=== PATIENT | male | born 1960 | race Caucasian/White ===

== ENCOUNTER 2016-09-12 11:31 | Observation (INO) ==
--- NOTE | 2016-09-12 11:41 | Emergency Department Note ---
Disposition Clinical Impression: Tachycardia, Cough, Fever, Renal insufficiency, Pulmonary nodules, Influenza A Disposition: Admitted As Inpatient Referrals: Jenna Daugherty CNP [Primary Care Provider] - Forms: ED Satisfaction Letter General Adult HPI - General Chief complaint: ED Shortness of Breath/Dyspnea Stated complaint: [facility] from [facility] Time Seen by Provider: 09/12/16 11:41 Source: patient Limitations: no limitations - History of Present Illness HPI Narrative: 56-year-old male reports emergency department from the urgent care center. The patient complained of cough runny nose nasal congestion and sore throat, they noticed his heart rate was rapid so they did an EKG which showed a sinus tachycardia with a heart rate of 132. The patient reports he has been ill for a couple of weeks. He was exposed to grandchild who had a similar illness. There is no history of choking and gasping wheezing stridor difficulty breathing or chest pain apart from when the patient coughs and the pain is on the right side only. There is no history of vomiting diarrhea or abdominal pain. No acute back pain. There is no history of confusion or convulsion. No trouble walking talking hearing seeing or speaking. No coughing up blood or leg swelling or pain. The patient denies anticoagulant therapy or previous cardiac disease including CAD or arrhythmia. There is no personal history of malignancy he has no history of DVT or PE. The patient has had no trouble moving the arms or legs independently. No dysarthria. No urinary symptoms. Onset (ago): day(s) Pain Scale: 10 - Related Data Home Medications Medication Instructions Recorded Confirmed Lisinopril/Hydrochlorothiazide 1 tab PO DAILY 12/07/15 02/20/16 [Zestoretic 20-25 mg Tablet] Atorvastatin Calcium [Lipitor] 20 mg PO DAILY 02/20/16 02/20/16 Esomeprazole Magnesium [Nexium] 40 mg PO DAILY 02/20/16 02/20/16 Ferrous Sulfate 325 mg PO DAILY 02/20/16 02/20/16 Ranitidine HCl [Zantac] 150 mg PO BID 02/20/16 02/20/16 Triamterene/HCTZ 37.5/25mg 1 tab PO DAILY 02/20/16 02/20/16 [Dyazide] Previous Rx's Medication Instructions Recorded Fluconazole [Diflucan] 150 mg PO Q3D #7 tab 03/04/16 Ketorolac [Toradol] 10 mg PO Q6HR 5 Days 05/02/16 Hydrocodone/Acetaminophen [Pontiac 1 tab PO Q6H PRN #10 tab 08/06/16 5-325 Tablet] Allergies Allergy/AdvReac Type Severity Reaction Status Date / Time No Known Allergies Allergy Verified 05/02/16 05:55 All systems ED: reviewed and negative except as stated. Past Medical History - Past Medical History Medical history: Reports: diabetes, GERD, hyperlipidemia, hypertension Surgical history: Reports: no surgical history Psychiatric history: Reports: no psych history - Social History Smoking Status: Never smoker Smokeless Tobacco Status: No Alcohol use: Reports: none Drug use: Reports: none Physical Exam - General Limitations: no limitations General appearance: alert, in no apparent distress - Head Head exam: atraumatic, normocephalic, normal inspection - Eye Eye exam: Present: normal appearance, PERRL, EOMI - ENT ENT exam: normal exam, normal oropharynx, mucous membranes moist, TM's normal bilaterally, normal external ear exam, other (Nasal congestion and discharge noted, the patient sounds congested.) - Neck Neck exam: Present: normal inspection, full ROM, trachea midline. Absent: meningismus - Chest Chest inspection: Present: symmetric chest wall rise. Absent: tenderness - Respiratory Respiratory exam: Present: normal lung sounds bilaterally. Absent: respiratory distress - Cardiovascular Cardiovascular exam: Present: regular rate, normal rhythm, normal heart sounds - Abdominal Exam Abdominal exam: Present: soft, Non-Tender, normal bowel sounds. Absent: tenderness, distention, guarding, rebound, rigidity, pulsatile mass - Extremities Exam Extremities exam: Present: normal inspection, full ROM, normal capillary refill. Absent: tenderness, pedal edema, joint swelling, calf tenderness - Expanded Lower Extremity Exam Neurovascular/Tendon exam: Present: normal capillary refill. Absent: pulse deficit, motor deficit, sensory deficit, tendon deficit, extremity cold to touch - Back Exam Back exam: Present: normal inspection, full ROM. Absent: tenderness, CVA tenderness (R), CVA tenderness (L), vertebral tenderness - Neurological Exam Neurological exam: Present: alert, oriented X3, CN II-XII intact. Absent: motor sensory deficit - Psychiatric Psychiatric exam: Present: normal affect, normal mood - Skin Skin exam: Present: warm, dry, intact, normal color. Absent: rash, cyanosis, diaphoresis, erythema, pallor, mottled Course Course Narrative: Patient reports he is developing a headache and complains of sinus pressure and congestion and pain in that area. He has had a persistent cough status post venting with codeine. He remains tachycardic. Percocet was given. - Reevaluation(s) Reevaluation #1: The patient stated he developed a fever of 102.7. Additional fluids were ordered. Lactate notably negative. The patient meet surge criteria this point , CTA chest pending. The patient is developed a headache but reports is from his sinuses. He is neurologically intact and he displays no nuchal rigidity but does have pain to percussion over the sinuses. There is no history of trauma. Initial Levaquin was ordered. Vital Signs Temperature 97.9 F 09/12/16 11:33 Pulse Rate 141 09/12/16 11:33 Respiratory Rate 18 09/12/16 11:33 Blood Pressure 166/94 09/12/16 11:33 O2 Sat by Pulse Oximetry 95 09/12/16 11:33 Temperature 102.7 F H 09/12/16 14:35 Pulse Rate 141 09/12/16 14:35 Respiratory Rate 24 09/12/16 14:35 Blood Pressure 176/110 09/12/16 14:35 O2 Sat by Pulse Oximetry 97 09/12/16 14:35 Oxygen Delivery Oxygen Delivery Room Air Medical Decision Making - MDM Narrative Medical decision making narrative: The patient has remained persistently tachycardic even after fluids and beta blockers. The patient developed a fever in the emergency department. CTA chest was obtained and showed no PE, pulmonary nodules noted. Flu testing was ordered and came back positive. Dr. Rose Mary navarrete came by the emergency department and evaluated the patient directly and feels the patient's recalcitrant tachycardia is significant, the patient will be admitted for observation. Tamiflu and Solu-Medrol were ordered. - Lab Data Lab results reviewed: Yes I reviewed the patient's lab results. Result diagrams: 09/12/16 11:56 09/12/16 11:56 Lab Results 09/12/16 09/12/16 09/12/16 Range/Units 11:56 11:56 11:56 WBC 7.6 (4.3-11.1) K/mcL RBC 5.37 (4.19-5.50) M/mcL Hgb 14.3 (12.9-16.9) g/dL Hct 42.5 (37.5-50.1) % MCV 79.1 L (83.0-100.0) fL MCH 26.6 L (28.0-33.3) pg MCHC 33.6 (31.6-35.5) g/dL RDW 14.6 H (11.5-14.5) % Plt Count 204 (140-400) K/mcL MPV 9.7 (9.4-12.4) fL Immature Gran % 1.3 (0-4) % Seg Neutrophils % 83.1 % Lymphocytes % 5.4 % Monocytes % 9.4 % Eosinophils % 0.5 % Basophils % 0.3 % Neutrophils # 6.3 (1.6-8.9) K/mcL Lymphocytes # 0.4 L (0.6-4.6) K/mcL Monocytes # 0.7 (0.0-1.3) K/mcL Eosinophils # 0.0 (0.0-0.6) K/mcL Basophils # 0.0 (0.0-0.2) K/mcL PT 11.9 (9.4-12.1) Seconds INR 1.1 APTT 30.9 (26.0-36.0) Seconds D-Dimer 781 H (0-500) ng/mLFEU Sodium 135 L (136-145) mEq/L Potassium 4.0 (3.5-4.5) mEq/L Chloride 94 L (98-109) mEq/L Carbon Dioxide 27 (19-29) mEq/L BUN 21 (8-26) mg/dL Creatinine 1.27 H (0.72-1.25) mg/dL Est GFR ( Amer) > 60 (> 60) Est GFR (Non-Af Amer) 58 L (> 60) BUN/Creatinine Ratio 17 (6-26) Glucose 107 H (70-99) mg/dL Calculated Osmolality 283 (280-300) Lactic Acid (0.5-2.2) mmol/L Calcium 9.5 (8.6-10.8) mg/dL Total Bilirubin 0.4 (0.2-1.2) mg/dL Direct Bilirubin 0.2 (0.0-0.5) mg/dL Indirect Bilirubin 0.2 (0.0-1.2) mg/dL AST 28 (5-34) Units/L ALT 47 (0-55) Units/L Alkaline Phosphatase 62 (38-126) Units/L Creatine Kinase 147 (30-200) Units/L Troponin I (0-0.03) ng/mL C-Reactive Protein 42 H (Less than 5) mg/L B-Natriuretic Peptide (0-100) pg/mL Serum Total Protein 7.5 (6.0-8.3) g/dL Albumin 3.5 (3.5-5.0) g/dL Globulin 4.0 H (2.4-3.5) g/dL Albumin/Globulin Ratio 0.9 L (1.1-2.2) TSH 0.525 (0.350-4.840) mcIU/mL 09/12/16 09/12/16 09/12/16 Range/Units 11:56 11:56 11:56 WBC (4.3-11.1) K/mcL RBC (4.19-5.50) M/mcL Hgb (12.9-16.9) g/dL Hct (37.5-50.1) % MCV (83.0-100.0) fL MCH (28.0-33.3) pg MCHC (31.6-35.5) g/dL RDW (11.5-14.5) % Plt Count (140-400) K/mcL MPV (9.4-12.4) fL Immature Gran % (0-4) % Seg Neutrophils % % Lymphocytes % % Monocytes % % Eosinophils % % Basophils % % Neutrophils # (1.6-8.9) K/mcL Lymphocytes # (0.6-4.6) K/mcL Monocytes # (0.0-1.3) K/mcL Eosinophils # (0.0-0.6) K/mcL Basophils # (0.0-0.2) K/mcL PT (9.4-12.1) Seconds INR APTT (26.0-36.0) Seconds D-Dimer (0-500) ng/mLFEU Sodium (136-145) mEq/L Potassium (3.5-4.5) mEq/L Chloride (98-109) mEq/L Carbon Dioxide (19-29) mEq/L BUN (8-26) mg/dL Creatinine (0.72-1.25) mg/dL Est GFR ( Amer) (> 60) Est GFR (Non-Af Amer) (> 60) BUN/Creatinine Ratio (6-26) Glucose (70-99) mg/dL Calculated Osmolality (280-300) Lactic Acid 1.3 (0.5-2.2) mmol/L Calcium (8.6-10.8) mg/dL Total Bilirubin (0.2-1.2) mg/dL Direct Bilirubin (0.0-0.5) mg/dL Indirect Bilirubin (0.0-1.2) mg/dL AST (5-34) Units/L ALT (0-55) Units/L Alkaline Phosphatase (38-126) Units/L Creatine Kinase (30-200) Units/L Troponin I 0.01 (0-0.03) ng/mL C-Reactive Protein (Less than 5) mg/L B-Natriuretic Peptide 63 (0-100) pg/mL Serum Total Protein (6.0-8.3) g/dL Albumin (3.5-5.0) g/dL Globulin (2.4-3.5) g/dL Albumin/Globulin Ratio (1.1-2.2) TSH (0.350-4.840) mcIU/mL - Radiology Data Radiology results reviewed: Yes I reviewed the patient's radiology results.
[2016-09-12 12:10] LABS: Basophils % 0.3 %; Eosinophils % 0.5 %; Hematocrit 42.5 % (37.5-50.1); Hemoglobin 14.3 g/dL (12.9-16.9); Immature Granulocytes % 1.3 % (0-4); Lymphocytes # 0.4 K/mcL (0.6-4.6); Lymphocytes % 5.4 %; Mean Corpuscular HGB Conc 33.6 g/dL (31.6-35.5); Mean Corpuscular Hemoglobin 26.6 pg (28.0-33.3); Mean Corpuscular Volume 79.1 fL (83.0-100.0); Mean Platelet Volume 9.7 fL (9.4-12.4); Monocytes # 0.7 K/mcL (0.0-1.3); Monocytes % 9.4 %; Neutrophils # 6.3 K/mcL (1.6-8.9); Platelet Count 204 K/mcL (140-400); Red Blood Count 5.37 M/mcL (4.19-5.50); Red Cell Distribution Width 14.6 % (11.5-14.5); Segmented Neutrophils % 83.1 %
[2016-09-12] MEDS: 0.9 % Sodium Chloride 1,000 ML IVC ONE ×2 (12:12→15:06)
[2016-09-12 12:18] LABS: INR 1.1; Prothrombin Time 11.9 Seconds (9.4-12.1)
[2016-09-12 12:20] LABS: Activated Partial Thrombo Time 30.9 Seconds (26.0-36.0)
[2016-09-12] MEDS ORDERED: Promethazine/Codeine Oral Sryup 5 ML UDC PO ONE (12:25)
[2016-09-12 12:27] LABS: Alanine Aminotransferase 47 Units/L (0-55); Albumin 3.5 g/dL (3.5-5.0); Albumin/Globulin Ratio 0.9 (1.1-2.2); Alkaline Phosphatase 62 Units/L (38-126); Aspartate Amino Transferase 28 Units/L (5-34); BUN/Creatinine Ratio 17 (6-26); Bilirubin,Direct 0.2 mg/dL (0.0-0.5); Bilirubin,Indirect 0.2 mg/dL (0.0-1.2); Bilirubin,Total 0.4 mg/dL (0.2-1.2); Blood Urea Nitrogen 21 mg/dL (8-26); Calcium 9.5 mg/dL (8.6-10.8); Carbon Dioxide 27 mEq/L (19-29); Chloride 94 mEq/L (98-109); Creatine Kinase 147 Units/L (30-200); Glucose 107 mg/dL (70-99); Osmolality,Calculated 283 (280-300); Sodium 135 mEq/L (136-145); Total Protein 7.5 g/dL (6.0-8.3); eGFR For African Americans > 60 (> 60); eGFR For Non-African Americans 58 (> 60)
[2016-09-12 12:48] LABS: Thyroid Stimulating Hormone 0.525 mcIU/mL (0.350-4.840)
[2016-09-12 13:23] LABS: C-Reactive Protein 42 mg/L (Less than 5)
[2016-09-12] MEDS ORDERED: *HR* OxyCODONE/APAP 5/325 TABLET PO ONE (14:18)
[2016-09-12] MEDS ORDERED: *HR* Metoprolol 5 MG/5 ML VIAL IVP ONE (14:20)
[2016-09-12] MEDS ORDERED: Levofloxacin 750 MG/150 ML 750 MG/150 ML BAG IVPB ONE (14:35)
[2016-09-12] MEDS ORDERED: 0.9 % Sodium Chloride 1,000 ML ONE (14:57)
[2016-09-12] MEDS ORDERED: Naloxone 0.4 MG/ML INJ IVP PRN (15:30)
[2016-09-12] MEDS ORDERED: *HR* Morphine 2 MG/ML SYRINGE IVP PRN (15:35)
[2016-09-12] MEDS ORDERED: NON-FORMULARY MEDICATION 1 EACH EACH (Fluconazole [Diflucan] 150 MG) PO SCH (15:45)
[2016-09-12] MEDS ORDERED: methylPREDNISolone 125 MG/2 ML VIAL IVP ONE (15:47)
[2016-09-12] MEDS ORDERED: MethylPREDNISolone 40 MG/ML VIAL IVP ONE (16:00)
--- NOTE | 2016-09-12 16:13 | Internal Med History&Physical ---
Date of Encounter: 09/12/16 Time of Encounter: 16:06 Assessment and Plan (1) COPD exacerbation Current visit: Yes Status: Acute COPD Exacerbation: likely COPD exacerbation. will start abx, sterriods and BDAs Noted patient ad spike of temp: 102. If persistent spoke then add vanco and Zosyn. At present only Levaquin to cover atypical/Superadded infection. In ER when I examined patient around 3 pm his HR was 11o/m (2) Influenza A Current visit: Yes Status: Acute respiratory precautions and Tamiflu close observation (3) Renal insufficiency Current visit: Yes Status: Acute NOREEN secndary to dehydration will get labs tomorrow. Internal Medicine - H&P: HPI Chief complaint: Shortness of breath Admitted From: Emergency Dept Plans for Post Hospital Care: Home History of present illness: 56/M PCP: none, usually ge evaluated bby urgent care. PMH : DM, HN, Dyslipidemia, HTN, GERD. HPI : The patient was complaining of cough with shortness of breath for last 4 weeks. In last week his symptoms got worse. Patient tried [id number] medication which did not help him. Patient started complaining of runny nose, chest tightness, cough, occasional shortness of breath and sinus pressure. Patient was evaluated by urgent care in [place]. At urgent care they found that patient was tachycardic to 130/m. This was the reason he was sent to ER for further evaluation. Patient denies nausea, vomiting, diarrhea, dizziness and abdominal pain. Workup in the ER: Patient was given IV fluids, blood was sent for appropriate testing, CT chest was negative for PE, chest x-ray did not reveal any major abnormality. Reason for hospitalization: Likely exacerbation of underlying chronic lung condition secondary to acute infection. Will start patient on Tamiflu as his serologies positive for influenza A. Patient needed intravenous antibiotics and intravenous steroids and that is the reason he is admitted as inpatient. Family history: Noncontributory Past Med Surg Social Fam HX - Past Medical History Medical history: diabetes, GERD, hyperlipidemia, hypertension Psychiatric history: no psych history - Past Surgical History Surgical History: no surgical history - Social History Smoking Status: Never smoker Smokeless Tobacco Status: No Alcohol use: none Drug use: none Internal Medicine - H&P: Meds Lisinopril/Hydrochlorothiazide [Zestoretic 20-25 mg Tablet] 1 tab PO DAILY 12/06 [History] Atorvastatin Calcium [Lipitor] 20 mg PO DAILY 02/20/16 [History] Esomeprazole Magnesium [Nexium] 40 mg PO DAILY 02/20/16 [History] Ferrous Sulfate 325 mg PO DAILY 02/20/16 [History] Ranitidine HCl [Zantac] 150 mg PO BID 02/20/16 [History] Triamterene/HCTZ 37.5/25mg [Dyazide] 1 tab PO DAILY 02/20/16 [History] Gabapentin [Neurontin] 300 mg PO TID 09/12/16 [History] Loratadine [Claritin] 10 mg PO DAILY 09/12/16 [History] Metformin [Glucophage] 500 mg PO BID 09/12/16 [History] Allergies No Known Allergies Allergy (Verified 05/02/16 05:55) All Systems PM: A 10-system review of systems was performed and is negative for pertinent findings except as documented above in the HPI. - Constitutional Constitutional: no chills, no fever(s), no night sweats - EENT Eyes: no change in vision, no discharge, no pain, no photophobia Ears: no ear discharge, no ear pain, no tinnitus Nose, mouth and throat: no dysphagia, no nasal discharge, no neck pain, no sore throat - Cardiovascular Cardiovascular ROS IM: no chest pain, no diaphoresis, no dyspnea, no lightheadedness, no palpitations, no syncope - Respiratory Respiratory: no cough, no dyspnea, no wheezing, no excessive phlegm production - Gastrointestinal Gastrointestinal: no abdominal pain, no diarrhea, no hematemesis, no hematochezia, no melena, no nausea, no vomiting - Musculoskeletal Musculoskeletal ROS IM: no numbness, no tingling - Integumentary Integumentary IM: no rash, no unusual bruising - Neurological Neurological ROS: no confusion, no convulsions, no focal weakness, no numbness, no tingling, no tremor(s) - Hematologic/Lymphatic Hematologic/Lymphatic: no easy bruising - Constitutional Vitals: Temp Pulse Resp BP Pulse Ox 102.7 F H 141 24 176/110 97 09/12/16 14:35 09/12/16 14:35 09/12/16 14:35 09/12/16 14:35 09/12/16 14:35 General appearance: Present: A&O X 3 - Head Head exam: Present: atraumatic, normocephalic - Eye Eye exam: Present: PERRL, conjuntiva pink, sclera anicteric Pupils: Present: PERRL - Neck Neck exam general surgery: Present: supple, trachea midline. Absent: lymphadenopathy - Respiratory Respiratory exam: Present: CTAB. Absent: accessory muscle use, rales, rhonchi, wheezes - Cardiovascular Cardiovascular exam: Present: RRR, +S1, +S2. Absent: diastolic murmur, gallop, rubs, systolic murmur - GI/Abdominal GI/Abdominal exam: Present: normal bowel sounds, soft, no peritoneal signs. Absent: distended, tenderness - Extremities Exam Extremities exam: Present: warm, radial pulses palpable and symetrical. Absent : calf tenderness, cyanotic, pedal edema - Neurological Exam Neurological exam: Present: CN II-XII intact, oriented X3, no focal deficits. Absent: pronater drift, facial droop, speech deficit - Skin Skin exam: Present: dry, intact Internal Med - H&P Results - Labs CBC & Chem 7: 09/12/16 11:56 09/12/16 11:56 Labs: Short CBC 09/12/16 Range/Units 11:56 WBC 7.6 (4.3-11.1) K/mcL Hgb 14.3 (12.9-16.9) g/dL Hct 42.5 (37.5-50.1) % Plt Count 204 (140-400) K/mcL Neutrophils # 6.3 (1.6-8.9) K/mcL BMP 09/12/16 11:56 Sodium 135 L Potassium 4.0 Chloride 94 L Carbon Dioxide 27 BUN 21 Creatinine 1.27 H Glucose 107 H Calcium 9.5 Cardiac Enzymes 09/12/16 Range/Units 11:56 Troponin I 0.01 (0-0.03) ng/mL Liver Function 09/12/16 Range/Units 11:56 Total Bilirubin 0.4 (0.2-1.2) mg/dL Direct Bilirubin 0.2 (0.0-0.5) mg/dL AST 28 (5-34) Units/L ALT 47 (0-55) Units/L Alkaline Phosphatase 62 (38-126) Units/L Albumin 3.5 (3.5-5.0) g/dL - Impressions ITS Impressions Chest X-Ray 09/12/16 11:48 IMPRESSION: No acute cardiopulmonary disease is appreciated. D/ / Amos Dorado MD / Amos Dorado MD Interpreting Provider: Amos Dorado MD Chest CTA 09/12/16 13:08 IMPRESSION: No evidence of pulmonary embolism or acute pulmonary abnormality. Bilateral pulmonary very small pulmonary nodules, which may be due to intra pulmonary lymph nodes or parenchymal nodules. Follow-up recommended as below per Fleischner society guidelines RECOMMENDATIONS: Fleischner Society guidelines for follow-up and management of pulmonary nodules: Nodule size equals 4-6 mm In a low-risk patient, follow-up CT at 12 months; if unchanged, no further follow-up. In a high-risk patient, initial follow-up CT at 6-12 months then at 18-24 months if no change. Low risk patients include individuals with minimal or absent history of smoking and other known risk factors. High risk patients include individuals with a history of smoking or other known risk factors. Radiology 2005; [phone] D/ / Donte Swift MD / Donte Swift MD Interpreting Provider: Donte Swift MD
[2016-09-12] MEDS: 0.9 % Sodium Chloride 1,000 ML IVC SCH (21:05)
[2016-09-12] MEDS: Ipratropium/Albuterol Neb 3 ML IH SCH (21:59)
[2016-09-13] MEDS: *HR* Heparin 5,000 UNIT/ML VIAL SQ SCH ×3 (00:09→18:39)
[2016-09-13] MEDS: Ipratropium/Albuterol Neb 3 ML IH SCH ×7 (00:22→21:08)
[2016-09-13] MEDS ORDERED: Ondansetron 4 MG/2 ML VIAL IVP ONE (03:11)
[2016-09-13] MEDS: Acetaminophen 325 MG TABLET PO PRN ×3 (04:16→18:39)
[2016-09-13] MEDS: Benzonatate 100 MG CAPSULE PO PRN ×3 (04:17→18:39)
[2016-09-13 04:58] LABS: INR 1.3; Prothrombin Time 13.7 Seconds (9.4-12.1)
[2016-09-13 04:59] LABS: Hematocrit 36.5 % (37.5-50.1); Immature Granulocytes % 1.3 % (0-4); Lymphocytes # 0.5 K/mcL (0.6-4.6); Lymphocytes % 7.5 %; Mean Corpuscular HGB Conc 33.4 g/dL (31.6-35.5); Mean Corpuscular Hemoglobin 26.6 pg (28.0-33.3); Mean Corpuscular Volume 79.5 fL (83.0-100.0); Mean Platelet Volume 9.9 fL (9.4-12.4); Monocytes # 0.2 K/mcL (0.0-1.3); Neutrophils # 6.1 K/mcL (1.6-8.9); Platelet Count 191 K/mcL (140-400); Red Blood Count 4.59 M/mcL (4.19-5.50); Red Cell Distribution Width 14.4 % (11.5-14.5); Segmented Neutrophils % 88.2 %
[2016-09-13 05:07] LABS: Hemoglobin 12.2 g/dL (12.9-16.9)
[2016-09-13 05:16] LABS: Alanine Aminotransferase 36 Units/L (0-55); Albumin 2.8 g/dL (3.5-5.0); Albumin/Globulin Ratio 0.8 (1.1-2.2); Alkaline Phosphatase 44 Units/L (38-126); Aspartate Amino Transferase 27 Units/L (5-34); BUN/Creatinine Ratio 19 (6-26); Bilirubin,Total 0.4 mg/dL (0.2-1.2); Blood Urea Nitrogen 21 mg/dL (8-26); Calcium 7.9 mg/dL (8.6-10.8); Carbon Dioxide 23 mEq/L (19-29); Chloride 94 mEq/L (98-109); Chol/HDL Ratio 4.8 (0-4.9); Cholesterol 190 mg/dL (< 200); Globulin 3.4 g/dL (2.4-3.5); Glucose 138 mg/dL (70-99); HDL Cholesterol 40 mg/dL (40-59); LDL Cholesterol,Calculated 130 mg/dL (0-99); Magnesium 0.8 mg/dL (1.6-2.6); Osmolality,Calculated 275 (280-300); Potassium 3.5 mEq/L (3.5-4.5); Sodium 130 mEq/L (136-145); Total Protein 6.2 g/dL (6.0-8.3); Triglycerides 101 mg/dL (< 150); eGFR For African Americans > 60 (> 60); eGFR For Non-African Americans > 60 (> 60)
[2016-09-13] MEDS: 0.9 % Sodium Chloride 1,000 ML IVC SCH (11:48)
--- NOTE | 2016-09-13 14:08 | Electrocardiograph Report ---
[place] [id number] Test Date: 2016-09-12 Pat Name: Sathya Bekc Department: 103 Room: 2A37 Gender: M [employer] Dispatcher: : 1960 Requested By: Calos Sal Order Number: [id number] Reading MD: Enma Pickering Measurements Intervals Industry Rate: 139 P: 46 KS: 105 QRS: -49 QRSD: 71 T: 45 QT: 277 QTc: 358 Interpretive Statements SINUS TACHYCARDIA WITH SHORT [place] INTERVAL LEFT ANTERIOR FASCICULAR BLOCK MINIMAL VOLTAGE CRITERIA FOR LVH Electronically Signed On 09-13-2016 14:06:52 EST by Enma Pickering
[2016-09-13] MEDS ORDERED: Levofloxacin 500 MG/100 ML 500 MG/100 ML BAG IVPB SCH (15:00)
--- NOTE | 2016-09-13 16:46 | Internal Med Progress Note ---
Date of Encounter: 09/13/16 Time of Encounter: 16:44 - Assessment and plan (1) Influenza A Current Visit: Yes Status: Acute Assessment and plan: positive for influenza A has been started on tamiflu, complete 5 days of treatment still says the cough is bad and has pleuritic chest pain will add mucinex with tessalon pearls. supportive tx with IVF , cough meds and analgesics. (2) Acute bronchitis Current Visit: Yes Status: Acute Assessment and plan: as above. probably 2/2 viral infection, flu is positive continue respiratory precautions. will continue the antibiotcis as this is outpatiet tx failure, but he has no pnuemonia on the CXR. he has no h/o COPD/asthma and is a non smoker. Qualifiers: Bronchitis organism: unspecified organism Qualified Code(s): J20.9 - Acute bronchitis, unspecified (3) Renal insufficiency Current Visit: Yes Status: Acute Assessment and plan: resolved. - Time Spent With Patient 25 - 35 minutes - Subjective Interval history: seen at the bedside, still reports cough and pleuritic chest pain. denies fever, no h/o COPD or asthma in the past reports that he is non smoker. - Constitutional Vitals: Temp Pulse Resp BP Pulse Ox 97.9 F 90 18 119/79 96 09/13/16 16:07 09/13/16 16:07 09/13/16 16:07 09/13/16 16:07 09/13/16 16:07 General appearance: Present: A&O X 3 Exam: - Head Head exam: Present: atraumatic, normocephalic - Eye Eye exam: Present: PERRL, conjuntiva pink, sclera anicteric Pupils: Present: PERRL - Neck Neck exam general surgery: Present: supple, trachea midline. Absent: lymphadenopathy - Respiratory Respiratory exam: Present: CTAB. Absent: accessory muscle use, rales, rhonchi, wheezes - Cardiovascular Cardiovascular exam: Present: RRR, +S1, +S2. Absent: diastolic murmur, gallop, rubs, systolic murmur - GI/Abdominal GI/Abdominal exam: Present: normal bowel sounds, soft, no peritoneal signs. Absent: distended, tenderness - Extremities Exam Extremities exam: Present: warm, radial pulses palpable and symetrical. Absent : calf tenderness, cyanotic, pedal edema - Neurological Exam Neurological exam: Present: CN II-XII intact, oriented X3, no focal deficits. Absent: pronater drift, facial droop, speech deficit - Skin Skin exam: Present: dry, intact Internal Medicine: Result - Labs CBC & Chem 7: 09/13/16 04:09 09/13/16 04:09 Labs: Short CBC 09/13/16 Range/Units 04:09 WBC 6.9 (4.3-11.1) K/mcL Hgb 12.2 L D (12.9-16.9) g/dL Hct 36.5 L (37.5-50.1) % Plt Count 191 (140-400) K/mcL Neutrophils # 6.1 (1.6-8.9) K/mcL BMP 09/13/16 04:09 Sodium 130 L Potassium 3.5 Chloride 94 L Carbon Dioxide 23 BUN 21 Creatinine 1.12 Glucose 138 H Calcium 7.9 L D Cardiac Enzymes 09/12/16 09/13/16 Range/Units 21:52 04:09 Troponin I 0.03 0.05 H* (0-0.03) ng/mL Liver Function 09/13/16 Range/Units 04:09 Total Bilirubin 0.4 (0.2-1.2) mg/dL AST 27 (5-34) Units/L ALT 36 (0-55) Units/L Alkaline Phosphatase 44 (38-126) Units/L Albumin 2.8 L (3.5-5.0) g/dL - ABG Interpretation ABG results: PT/INR, D-dimer PT 13.7 Seconds (9.4-12.1) H 09/13/16 04:09 D-Dimer 781 ng/mLFEU (0-500) H 09/12/16 11:56 Consult Discharge Plan - Plan Referrals: Jenna Daugherty, [facility] [Primary Care Provider] -
[2016-09-14] MEDS: Ipratropium/Albuterol Neb 3 ML IH SCH ×5 (01:02→16:18)
[2016-09-14] MEDS: 0.9 % Sodium Chloride 1,000 ML IVC SCH (02:57)
[2016-09-14] MEDS: Benzonatate 100 MG CAPSULE PO PRN ×2 (02:57→09:05)
[2016-09-14] MEDS: Acetaminophen 325 MG TABLET PO PRN (02:57)
[2016-09-14] MEDS: *HR* Heparin 5,000 UNIT/ML VIAL SQ SCH (05:59)
[2016-09-14 07:15] LABS: BUN/Creatinine Ratio 18 (6-26); Blood Urea Nitrogen 18 mg/dL (8-26); Calcium 7.9 mg/dL (8.6-10.8); Carbon Dioxide 27 mEq/L (19-29); Chloride 101 mEq/L (98-109); Glucose 72 mg/dL (70-99); Osmolality,Calculated 286 (280-300); Potassium 3.3 mEq/L (3.5-4.5); eGFR For African Americans > 60 (> 60); eGFR For Non-African Americans > 60 (> 60)
[2016-09-14 07:18] LABS: Basophils % 0.2 %; Eosinophils % 0.5 %; Hematocrit 38.1 % (37.5-50.1); Hemoglobin 12.7 g/dL (12.9-16.9); Immature Granulocytes % 0.9 % (0-4); Lymphocytes # 1.8 K/mcL (0.6-4.6); Lymphocytes % 31.6 %; Mean Corpuscular HGB Conc 33.3 g/dL (31.6-35.5); Mean Corpuscular Hemoglobin 26.6 pg (28.0-33.3); Mean Corpuscular Volume 79.9 fL (83.0-100.0); Mean Platelet Volume 9.7 fL (9.4-12.4); Monocytes # 0.4 K/mcL (0.0-1.3); Monocytes % 6.4 %; Neutrophils # 3.5 K/mcL (1.6-8.9); Platelet Count 169 K/mcL (140-400); Red Blood Count 4.77 M/mcL (4.19-5.50); Red Cell Distribution Width 14.6 % (11.5-14.5); Segmented Neutrophils % 60.4 %
[2016-09-14 07:49] LABS: Sodium 138 mEq/L (136-145)
[2016-09-14 15:24] VITALS: BP 140/82
--- NOTE | 2016-09-14 16:05 | Discharge Summary ---
Date of Encounter: 09/21/16 Time of Encounter: 16:03 - Discharge Diagnosis (1) Influenza A Priority: Primary Status: Acute (2) Acute bronchitis Priority: Primary Status: Acute Qualifiers: Bronchitis organism: unspecified organism Qualified Code(s): J20.9 - Acute bronchitis, unspecified (3) Renal insufficiency Priority: Secondary Status: Acute - Discharge Medications Prescriptions: Levofloxacin 500 mg PO DAILY #3 tablet Oseltamivir [Tamiflu] 75 mg PO BID #6 capsule Home Medications: Lisinopril/Hydrochlorothiazide [Zestoretic 20-25 mg Tablet] 1 tab PO DAILY 12/06 [History] Atorvastatin Calcium [Lipitor] 20 mg PO DAILY 02/20/16 [History] Esomeprazole Magnesium [Nexium] 40 mg PO DAILY 02/20/16 [History] Ferrous Sulfate 325 mg PO DAILY 02/20/16 [History] Ranitidine HCl [Zantac] 150 mg PO BID 02/20/16 [History] Triamterene/HCTZ 37.5/25mg [Dyazide] 1 tab PO DAILY 02/20/16 [History] Gabapentin [Neurontin] 300 mg PO TID 09/12/16 [History] Loratadine [Claritin] 10 mg PO DAILY 09/12/16 [History] Metformin [Glucophage] 500 mg PO BID 09/12/16 [History] Levofloxacin 500 mg PO DAILY #3 tablet 09/14/16 [Rx] Oseltamivir [Tamiflu] 75 mg PO BID #6 capsule 09/14/16 [Rx] Allergies/Adverse Reactions: Allergies No Known Allergies Allergy (Verified 05/02/16 05:55) Date of admission: 09/12/16 18:18 Primary care physician: Jenna Daugherty CNP Discharging clinician: Ritu Packer Anticipated date of discharge: 09/14/16 - Patient Status Disposition: Home, Self-Care Condition: Fair Functional capacity at discharge: independent ambulation Overall status at discharge: patient is back to baseline - Discharge Instructions Instructions: Oseltamivir (By mouth), Influenza (DC), Chronic Obstructive Pulmonary Disease (DC) Follow Up With: Jenna Daugherty CNP [Primary Care Provider] - 09/25/16 1:15 pm (Please follow up as schedule!!!) - Diet and Activity Activity: resume usual activities as tolerated Diet: advance to your usual diet Interval History: patient with PMH of Dyslipidemia, HTN, GERD presented with complaining of cough with shortness of breath for last 4 weeks. In last week his symptoms got worse. Patient tried [id number] medication which did not help him. Patient was evaluated by urgent care in [place]. At urgent care they found that patient was tachycardic to 130/m. This was the reason he was sent to ER for further evaluation. Patient denies nausea, vomiting, diarrhea, dizziness and abdominal pain. Workup in the ER: Patient was given IV fluids, blood was sent for appropriate testing, CT chest was negative for PE, chest x-ray did not reveal any major abnormality.Influenza was positive. HE was treated with tamiflu and supportive treatment.HE has no diagnosis of COPD or asthma. His symptoms have improved with the treatment. he is being discharged in stable condition today and will f/u with his PCP. Hospital course: Mr. Beck is a 56 year old male Time spent discussing smoking cessation with patient: more than 10 minutes - Time Spent with Patient Total time spent providing and/or coordinating discharge services: Greater than 30 minutes - Constitutional Vitals: Temp Pulse Resp BP Pulse Ox 98.0 F 92 18 140/82 97 09/14/16 15:23 09/14/16 15:23 09/14/16 15:23 09/14/16 15:23 09/14/16 15:23 General appearance: Present: A&O X 3
== END 2016-09-14 16:56 | disposition home or self-care (01) ==
LOC: EMEROO 11:31 → 2ANU 11:31
PROVIDERS: ADMIT Internal Medicine; ATTEND Internal Medicine Endocrinology, Diabetes & Metabolism

== ENCOUNTER 2021-07-12 07:21 | Observation (INO) ==
[2021-07-12] MEDS ORDERED: 0.9 % Sodium Chloride 1,000 ML IVC ONE (07:30)
[2021-07-12 08:11] LABS: Basophils % 0.3 %; Eosinophils # 0.2 K/mcL (0.0-0.6); Eosinophils % 1.8 %; Hematocrit 41.6 % (37.5-50.1); Hemoglobin 13.4 g/dL (12.9-16.9); Immature Granulocytes % 0.8 % (0-4); Lymphocytes # 3.7 K/mcL (0.6-4.6); Mean Corpuscular HGB Conc 32.2 g/dL (31.6-35.5); Mean Corpuscular Hemoglobin 28.2 pg (28.0-33.3); Mean Corpuscular Volume 87.6 fL (83.0-100.0); Mean Platelet Volume 10.3 fL (9.4-12.4); Monocytes # 0.7 K/mcL (0.0-1.3); Monocytes % 5.6 %; Neutrophils # 7.6 K/mcL (1.6-8.9); Platelet Count 285 K/mcL (140-400); Red Blood Count 4.75 M/mcL (4.19-5.50); Red Cell Distribution Width 13.7 % (11.5-14.5); Segmented Neutrophils % 61.5 %; White Blood Count 12.4 K/mcL (4.3-11.1)
[2021-07-12 08:21] LABS: Prothrombin Time 11.6 Seconds (9.4-12.1)
[2021-07-12 08:23] LABS: Activated Partial Thrombo Time 28.2 Seconds (26.0-36.0)
[2021-07-12 08:30] LABS: Alanine Aminotransferase 8 Units/L (7-52); Albumin 3.9 g/dL (3.5-5.7); Albumin/Globulin Ratio 1.5 (1.1-2.2); Alkaline Phosphatase 50 Units/L (34-104); Aspartate Amino Transferase 8 Units/L (13-39); BUN/Creatinine Ratio 15 (6-26); Bilirubin,Direct 0.1 mg/dL (0.0-0.2); Bilirubin,Indirect 0.6 mg/dL (0.0-1.0); Bilirubin,Total 0.7 mg/dL (0.3-1.0); Blood Urea Nitrogen 24 mg/dL (8-23); Calcium 8.8 mg/dL (8.6-10.3); Carbon Dioxide 27 mEq/L (23-29); Chloride 100 mEq/L (98-107); Creatine Kinase 38 Units/L (30-223); Ethanol < 10 mg/dL (Less than 10); Globulin 2.6 g/dL (2.4-3.5); Glucose 171 mg/dL (70-105); Magnesium 1.3 mg/dL (1.6-2.6); Osmolality,Calculated 294 (280-300); Phosphorous 4.2 mg/dL (2.7-4.5); Potassium 3.4 mEq/L (3.5-5.1); Sodium 138 mEq/L (136-145); Total Protein 6.5 g/dL (6.4-8.9); Troponin I < 0.03 ng/mL (< 0.04); eGFR For African Americans 55 (> 60); eGFR For Non-African Americans 45 (> 60)
[2021-07-12] MEDS ORDERED: Ondansetron 4 MG/2 ML VIAL IVP PRN (09:30)
[2021-07-12] MEDS ORDERED: Naloxone 0.4 MG/ML INJ IVP PRN (09:30)
[2021-07-12 10:51] LABS: Bilirubin,Urine Negative (Negative); Blood,Urine Trace-intact (Negative); Clarity,Urine Clear (Clear); Color,Urine Yellow (Yellow); Glucose,Urine (UA) Normal (Normal); Ketones,Urine Negative (Negative); Leukocyte Esterase,Urine Negative (Negative); Nitrite,Urine Negative (Negative); PH,Urine 5.5 pH Units (5.0-8.0); Protein,Urine 30 mg/dL (Neg-Trace); Specific Gravity,Urine >= 1.030 (1.010-1.025); Urobilinogen,Urine Normal (Normal)
[2021-07-12 10:53] LABS: Bacteria,Urine Few per hpf (None-Few); Mucus,Urine Few per lpf (None-Few); RBC,Urine 0-3 per hpf (0-3); Squamous Epithelial Cell,Urine Few per hpf (None-Few)
[2021-07-12 11:01] LABS: Amphetamine Screen,Urine Negative ng/mL (Cutoff=1000); Barbiturate Screen,Urine Negative ng/mL (Cutoff=200); Benzodiazepines Screen,Urine Negative ng/mL (Cutoff=200); Cannabinoid Screen,Urine Negative ng/mL (Cutoff = 50); Cocaine Screen,Urine Negative ng/mL (Cutoff= 300); Opiate Screen,Urine Negative ng/mL (Cutoff=300); Phencyclidine Screen,Urine Negative ng/mL (Cutoff=25)
[2021-07-12] MEDS ORDERED: Potassium Chloride Elixir 20 MEQ/15 ML UDC PO ONE (11:03)
[2021-07-12] MEDS ORDERED: cefTRIAXone 2,000 MG in 0.9 % Sodium Chloride Mini Bag 100 ML IVPB SCH (16:00)
[2021-07-13 05:19] LABS: Basophils # 0.1 K/mcL (0.0-0.2); Basophils % 0.5 %; Eosinophils # 0.1 K/mcL (0.0-0.6); Eosinophils % 1.2 %; Hematocrit 38.7 % (37.5-50.1); Hemoglobin 12.9 g/dL (12.9-16.9); Immature Granulocytes % 0.8 % (0-4); Lymphocytes # 2.8 K/mcL (0.6-4.6); Lymphocytes % 26.3 %; Mean Corpuscular HGB Conc 33.3 g/dL (31.6-35.5); Mean Corpuscular Hemoglobin 28.7 pg (28.0-33.3); Mean Platelet Volume 10.1 fL (9.4-12.4); Monocytes # 0.7 K/mcL (0.0-1.3); Monocytes % 6.7 %; Neutrophils # 6.8 K/mcL (1.6-8.9); Platelet Count 231 K/mcL (140-400); Red Cell Distribution Width 13.9 % (11.5-14.5); Segmented Neutrophils % 64.5 %; White Blood Count 10.5 K/mcL (4.3-11.1)
[2021-07-13 05:40] LABS: BUN/Creatinine Ratio 19 (6-26); Blood Urea Nitrogen 27 mg/dL (8-23); Calcium 8.6 mg/dL (8.6-10.3); Carbon Dioxide 27 mEq/L (23-29); Chloride 102 mEq/L (98-107); Glucose 95 mg/dL (70-105); Magnesium 1.7 mg/dL (1.6-2.6); Osmolality,Calculated 287 (280-300); Phosphorous 2.2 mg/dL (2.7-4.5); Potassium 3.3 mEq/L (3.5-5.1); Sodium 136 mEq/L (136-145); eGFR For African Americans > 60 (> 60); eGFR For Non-African Americans 50 (> 60)
[2021-07-13] MEDS ORDERED: amLODIPine 5 MG TABLET PO SCH (09:30)
[2021-07-13] MEDS ORDERED: Aspirin 81 MG TAB.CHEW PO SCH (09:30)
[2021-07-13 10:14] VITALS: BP 131/87; PULSE 71; TEMP 98; O2SAT 97
[2021-07-13] MEDS ORDERED: Potassium Chloride Elixir 20 MEQ/15 ML UDC PO ONE (11:01)
[2021-07-13] MEDS ORDERED: Gabapentin 400 MG CAPSULE PO SCH (15:00)
[2021-07-13] MEDS ORDERED: *HR* Metformin 500 MG TABLET PO SCH (17:00)
[2021-07-13 19:05] LABS: Chlamydia Trachomatis DNA Ur NOT DETECTED (Not Detect)
[2021-07-13] MEDS ORDERED: Metoprolol XL (24 HR) Succ 50 MG TAB.ER.24H PO SCH (21:00)
[2021-07-13] MEDS ORDERED: Ranolazine 500 MG TAB.ER.12H PO SCH (21:00)
[2021-07-14] MEDS ORDERED: *HR* Pioglitazone 15 MG TABLET PO SCH (09:00)
[2021-07-14] MEDS ORDERED: Loratadine 10 MG TABLET PO SCH (09:00)
[2021-07-14] MEDS ORDERED: Valsartan 160 MG TABLET PO SCH (09:00)
[2021-07-14] MEDS ORDERED: Cyanocobalamin (B-12) 1,000 MCG TABLET PO SCH (09:00)
== END 2021-07-13 16:37 | disposition home or self-care (01) ==
LOC: 3BNU 07:21 → EMEROOARM 07:21 → 3BNU 12:54
PROVIDERS: ADMIT Hospitalist; ATTEND Hospitalist